=== PATIENT | female | born 1950 | race Caucasian/White ===

== ENCOUNTER 2022-09-07 11:13 | Emergency (ER) | payer MEDICARE, SELFPAY ==
[2022-09-07 11:26] VITALS: BP 153/95; PULSE 85; RESP 16; TEMP 36.6; O2SAT 98
[2022-09-07 11:35] VITALS: BP 153/95; PULSE 85; RESP 16; TEMP 36.6; O2SAT 98
--- NOTE | 2022-09-07 11:44 | ED.URI ---
HPI - URI/Sore Throat General Chief Complaint: Upper Respiratory Infection Stated Complaint: cough, sore throat Time Seen by Provider: 09/07/22 11:30 Source: patient Mode of arrival: ambulatory Limitations: no limitations History of Present Illness HPI Narrative: Simona is a 71-year-old female patient presenting to the clinic today with complaints of cough, sinus congestion, sinus pressure, yellow nasal drainage, and sore throat x9 days. She denies any known fever but has had some chills. MD elicited complaint: cough, sore throat, rhinorrhea, nasal congestion and sinus pain Related Data Home Medications Medication Instructions Recorded Confirmed alprazolam 0.25 mg tablet 0.25 mg PO DIRECTED 09/07/22 09/07/22 buspirone 10 mg tablet 10 mg PO DIRECTED 09/07/22 09/07/22 buspirone 5 mg tablet 5 mg PO DIRECTED 09/07/22 09/07/22 clonidine HCl 0.1 mg tablet 0.1 mg PO DIRECTED 09/07/22 09/07/22 hydrochlorothiazide 12.5 mg capsule 12.5 mg PO DAILY 09/07/22 09/07/22 hydrochlorothiazide 25 mg tablet 25 mg PO DAILY 09/07/22 09/07/22 metoprolol succinate 50 mg 50 mg PO DAILY 09/07/22 09/07/22 tablet,extended release 24 hr potassium chloride 10 mEq 1 meq PO DAILY 09/07/22 09/07/22 tablet,extended release(part/cryst) (Klor-Con M) rosuvastatin 20 mg tablet 20 mg PO DAILY 09/07/22 09/07/22 sacubitril 49 mg-valsartan 51 mg 1 tablet PO DAILY 09/07/22 09/07/22 tablet (Entresto) Allergies Allergy/AdvReac Type Severity Reaction Status Date / Time Penicillins Allergy Rash Verified 09/07/22 11:57 Review of Systems Review of Systems: Pertinent positives per HPI. Patient denies any fever, rash, visual changes, dizziness, cough, shortness of breath, chest pain, palpitations, nausea, vomiting, diarrhea, constipation, abdominal pain, or any urinary issues. PMFSH Comments At the time of my signature, I reviewed and agree with the nursing past medical, surgical, social, and family history. There is no relevant family history pertinent to the patient complaint. Exam Narrative: General: Well-developed, obese, in no apparent distress Head: Normocephalic, atraumatic Eyes: Pupils equally round and reactive to light bilaterally, EOM intact, sclera and conjunctive clear, no discharge, lids normal Ears: TMs intact and clear, ear canals clear, no drainage, grossly hearing normal. Nose: Nares patent, yellow nasal discharge, moderate to severe inflammation, maxillary and frontal sinus tenderness. Mouth: Oral pharynx without lesions or masses, good dentition, MMM. Postnasal drip Neck: Supple, trachea midline, no enlargement of anterior or posterior cervical nodes, no thyroid masses or goiter palpable. Cardio: Regular rate and rhythm, s1 and s2 normal, no murmur appreciated. Resp: Clear to auscultation bilaterally, no rhonchi, rales, wheezing or rubs Course Course Emergency Course: Portions of this record may have been created with voice recognition software. Level of Care: Express Care Visit Vital Signs Vital signs: Vital Signs Temperature 36.6 C 09/07/22 11:26 Pulse Rate 85 09/07/22 11:26 Respiratory Rate 16 09/07/22 11:26 Blood Pressure 153/95 H 09/07/22 11:26 Pulse Oximetry 98 09/07/22 11:26 Oxygen Delivery Room Air 09/07/22 11:26 Temperature 36.6 C 09/07/22 11:35 Pulse Rate 85 09/07/22 11:35 Respiratory Rate 16 09/07/22 11:35 Blood Pressure 153/95 H 09/07/22 11:35 Pulse Oximetry 98 09/07/22 11:35 Oxygen Delivery Room Air 09/07/22 11:35 Vital signs reviewed MDM - URI/Sore Throat MDM Narrative Medical decision making narrative: At the time of visit patient is resting comfortably on the exam table. I suspect patient has acute bacterial rhinosinusitis. Prescription for doxycycline and prednisone was sent to the pharmacy and supportive measures were discussed with the patient she voiced understanding of discharge instructions and agrees to the treatment plan. Differential D
== END 2022-09-07 11:49 | disposition home or self-care (01) ==
PROVIDERS: Emergency Provider Nurse Practitioner Family
DX: J01.90 Acute sinusitis, unspecified (principal); E78.00 Pure hypercholesterolemia, unspecified; I10 Essential (primary) hypertension; M19.90 Unspecified osteoarthritis, unspecified site
CPT/HCPCS: 99213; G0463

== ENCOUNTER 2022-10-28 18:36 | Emergency (ER) | payer MEDICARE, SELFPAY ==
--- NOTE | ~2022-10-28 | XR_ITS ---
EXAMINATION: XR wrist RT min 3V INDICATION: Right wrist pain TECHNIQUE: Four views of the right wrist are obtained. 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 There appears to be an old healed fracture of th e ulnar styloid. There is mild irregularity in the distal aspect of the first proximal phalanx. The soft tissues are unremarkable. IMPRESSION: 1. Mild irregularity in the distal aspect of the first proximal phalanx which could reflect osteoarth ritis versus old injury. Correlate for tenderness at this site. Reviewed, dictated and finalized at location F. IMPRESSION: 1. Mild irregularity in the distal aspect of the first proximal phalanx which c ould reflect osteoarthritis versus old injury. Correlate for tenderness at this site.
[2022-10-28 18:42] VITALS: BP 151/80; PULSE 91; RESP 16; TEMP 36.4; O2SAT 98
--- NOTE | 2022-10-28 18:44 | ED.UPPEXIN ---
HPI - Extremity Injury (Upper) General Chief Complaint: Extremity Injury, Upper Stated Complaint: FALL/INJURED R HAND/WRIST Time Seen by Provider: 10/28/22 18:44 Source: patient and RN notes reviewed History of Present Illness HPI narrative: Patient is a 71-year-old female who presents to urgent care with complaints of right hand/wrist pain after falling on the gravel today. Patient states that she rolled her right ankle and fell down onto her left knee catching herself with her right hand. Patient states that the knee feels okay however she is concerned about a right hand fracture. Patient has clean the wound and put ice on the hand. No other acute complaints or injuries. Denies hitting her head or any loss consciousness. No other acute complaints. Patient aware of the plan of care. Some parts of this dictation were generated by voice recognition software and may contain typographical and/or grammatical inaccuracies. Related Data Home Medications Medication Instructions Recorded Confirmed alprazolam 0.25 mg tablet 0.25 mg PO DIRECTED 09/07/22 09/07/22 buspirone 10 mg tablet 10 mg PO DIRECTED 09/07/22 09/07/22 buspirone 5 mg tablet 5 mg PO DIRECTED 09/07/22 09/07/22 clonidine HCl 0.1 mg tablet 0.1 mg PO DIRECTED 09/07/22 09/07/22 hydrochlorothiazide 12.5 mg capsule 12.5 mg PO DAILY 09/07/22 09/07/22 hydrochlorothiazide 25 mg tablet 25 mg PO DAILY 09/07/22 09/07/22 metoprolol succinate 50 mg 50 mg PO DAILY 09/07/22 09/07/22 tablet,extended release 24 hr potassium chloride 10 mEq 1 meq PO DAILY 09/07/22 09/07/22 tablet,extended release(part/cryst) (Klor-Con M) rosuvastatin 20 mg tablet 20 mg PO DAILY 09/07/22 09/07/22 sacubitril 49 mg-valsartan 51 mg 1 tablet PO DAILY 09/07/22 09/07/22 tablet (Entresto) Allergies Allergy/AdvReac Type Severity Reaction Status Date / Time Penicillins Allergy Rash Verified 10/28/22 18:45 Review of Systems Review of Systems: CONSTITUTIONAL: Denies fever, chills, or sweats. EYES: Denies visual changes, redness, or discharge. ENT: Denies rhinorrhea, congestion, sore throat, or otalgia. CARDIOVASCULAR: Denies chest pain, palpitations, or edema. RESPIRATORY: Denies cough or dyspnea. GASTROINTESTINAL: Denies abdominal pain, nausea, vomiting, or diarrhea. GENITOURINARY: Denies dysuria or hematuria. SKIN: Denies rash or itching. MUSCULOSKELETAL: Reports right hand/wrist pain after fall NEUROLOGIC: Denies headache, numbness, or weakness. All other systems reviewed are negative, except as documented in HPI. PMFSH Comments At the time of my signature, I reviewed and agree with the nursing past medical, surgical, social, and family history. There is no relevant family history pertinent to the patient complaint. Exam Narrative: GENERAL: This is a well-nourished, well-developed patient, in no apparent distress. HEAD: normocephalic, atraumatic. EYES: PERRL. Sclera clear/white. Vision is grossly intact. EARS: External ears normal NOSE: External nose normal with no obvious nasal discharge, nares without redness, no rhinorrhea. THROAT: Mucous membranes moist NECK: Neck supple SKIN: Superficial skin abrasions to the anterior aspect of the left knee. Superficial skin abrasions to the thenar eminence of the right palmar hand. NEURO: awake, alert, and oriented to person, place and time. There were no obvious focal neurologic abnormalities. EXTREMITIES: Mild ecchymosis to the distal and of the right 1st phalanx with mild tenderness. No obvious deformity noted to right upper extremity. Positive strong right radial pulse with capillary refill less than 2 seconds. Range of motion to right hand within normal limits. Course Course Level of Care: Express Care Visit Vital Signs Vital signs: Vital Signs Temperature 97.6 F 10/28/22 18:42 Pulse Rate 91 10/28/22 18:42 Respiratory Rate 16 10/28/22 18:42 Blood Pressure 151/80 H 10/28/22 18:42 Pulse Oximetry 98 10/28/22 1
[2022-10-28 18:47] VITALS: BP 151/80; PULSE 91; RESP 16; TEMP 36.4; O2SAT 98
== END 2022-10-28 19:39 | disposition home or self-care (01) ==
PROVIDERS: Emergency Provider Nurse Practitioner Family; PCP Internal Medicine
DX: S63.501A Unspecified sprain of right wrist, initial encounter (principal); S66.911A Strain of unspecified muscle, fascia and tendon at wrist and hand level, right hand, initial encounter; W19.XXXA Unspecified fall, initial encounter; S63.601A Unspecified sprain of right thumb, initial encounter; E78.00 Pure hypercholesterolemia, unspecified; I10 Essential (primary) hypertension; M19.90 Unspecified osteoarthritis, unspecified site
CPT/HCPCS: 73110; 99213; G0463

== ENCOUNTER 2023-06-05 10:05 | Emergency (ER) | payer MEDICARE, SELFPAY ==
--- NOTE | 2023-06-05 10:10 | ED.LOWEXIN ---
HPI - Extremity Injury (Lower) General Chief Complaint: Extremity Injury, Lower Stated Complaint: R KNEE PAIN Source: patient, family and RN notes reviewed History of Present Illness HPI Narrative: 72 yo F presents to urgent care with daughter at side. Pt states she has been having right medial knee pain x 2 days. Pt states 2 days prior to when the pain started, she rode her bike which has not been a daily activity for her. Denies any known injury or falls. Denies any fevers, chills, chest pain, SOB, numbness, or tingling. Pt has been taking Tylenol with moderate relief. Pt states last time she had pain like this, she was given a Toradol injection which took the pain right away. Pt states the Toradol injection made her stomach upset and states steroids have also helped her with pain like this in the past. Related Data Home Medications Medication Instructions Recorded Confirmed alprazolam 0.25 mg tablet 0.25 mg PO DIRECTED 09/07/22 06/05/23 buspirone 10 mg tablet 10 mg PO DIRECTED 09/07/22 06/05/23 buspirone 5 mg tablet 5 mg PO DIRECTED 09/07/22 06/05/23 clonidine HCl 0.1 mg tablet 0.1 mg PO DIRECTED 09/07/22 06/05/23 hydrochlorothiazide 12.5 mg capsule 12.5 mg PO DAILY 09/07/22 06/05/23 hydrochlorothiazide 25 mg tablet 25 mg PO DAILY 09/07/22 06/05/23 metoprolol succinate 50 mg 50 mg PO DAILY 09/07/22 06/05/23 tablet,extended release 24 hr rosuvastatin 20 mg tablet 20 mg PO DAILY 09/07/22 06/05/23 sacubitril 49 mg-valsartan 51 mg 1 tablet PO DAILY 09/07/22 06/05/23 tablet (Entresto) aspirin 81 mg capsule 81 mg PO DAILY 11/09/22 06/05/23 bupropion HCl 100 mg tablet,12 hr 100 mg PO DAILY 11/09/22 06/05/23 sustained-release (Wellbutrin SR) cetirizine 10 mg capsule (Zyrtec) 10 mg PO DAILY PRN Allergic 11/09/22 06/05/23 Symptoms Allergies Allergy/AdvReac Type Severity Reaction Status Date / Time morphine Allergy Severe Vomiting Verified 06/05/23 10:10 Penicillins Allergy Rash Verified 06/05/23 10:10 hydrocodone AdvReac Intermediate Nausea and Verified 06/05/23 10:10 Vomiting Review of Systems Review of Systems: CONSTITUTIONAL: Denies fever, chills, or sweats. EYES: Denies visual changes, redness, or discharge. ENT: Denies otalgia and sore throat CARDIOVASCULAR: Denies chest pain, palpitations, or edema. RESPIRATORY: Denies cough or dyspnea. GASTROINTESTINAL: Denies abdominal pain, nausea, vomiting, or diarrhea. GENITOURINARY: Denies dysuria or hematuria. SKIN: Denies rash or itching. MUSCULOSKELETAL: right knee pain NEUROLOGIC: Denies headache, numbness, or weakness. Pertinent positives per HPI. PMFSH Past Medical History Medical History Anxiety History of ectopic Hyperlipidemia Hypertension Surgical History Surgical History History of hysterectomy Family History Family History Father Cancer Diabetes mellitus Hypertension Depression Heart disease Other Cancer Diabetes mellitus Hypertension Heart disease Thyroid disorder Grandparent Cancer Diabetes mellitus Hypertension Cerebrovascular accident Thyroid disorder Mother Hypertension Heart disease Cerebrovascular accident Thyroid disorder Sibling Hypertension Social History Social History Smoking status: Never smoker Alcohol intake: never Substance use type: does not use Living arrangements: with family Occupation/Education: retired Comments At the time of my signature, I reviewed and agree with the nursing past medical, surgical, social, and family history. There is no relevant family history pertinent to the patient complaint. Exam Narrative: GENERAL: This is a well-nourished, well-developed patient, in no apparent distress. HEAD: normocephalic, a
[2023-06-05 10:18] VITALS: BP 125/90; PULSE 70; RESP 16; TEMP 36.8; O2SAT 99
[2023-06-05] MEDS: predniSONE 20 MG TABLET 30 MG PO (10:50)
== END 2023-06-05 12:28 | disposition home or self-care (01) ==
PROVIDERS: Emergency Provider Nurse Practitioner Family; PCP Family Medicine
DX: M25.561 Pain in right knee (principal); E78.5 Hyperlipidemia, unspecified; I10 Essential (primary) hypertension; Z79.899 Other long term (current) drug therapy; Z79.82 Long term (current) use of aspirin
CPT/HCPCS: 99213; G0463; J7512

== ENCOUNTER 2024-02-11 13:15 | Outpatient (RCR) | payer MEDICARE, SELFPAY ==
--- NOTE | 2023-11-16 16:00 | OPREHPOC ---
Outpatient Therapy Plan of Care This is a Multidisciplinary Plan of Care that may contain components documented by all disciplines (PT, OT, and ST.) PT Problem 1 PT Problem #1 Knowledge Deficit PT Goal 1 Goal Pt to be IND with issued HEP Target Visit 8 PT Problem 2 PT Problem #2 Pain PT Goal 1 Goal Pt to report knee pain no greater than 3/10 in the last week. Target Visit 8 PT Goal 2 Goal Pt to report 75% improvement in overall symptoms. Target Visit 8 PT Problem 3 PT Problem #3 Impaired Functional Mobil PT Goal 1 Goal Pt to demonstrate a functional lift and carry of 20lb without an increase in symptoms. Target Visit 8 PT Goal 2 Goal Pt to demonstrate a floor to stand transfers with external support. Target Visit 8 PT Problem 4 PT Problem #4 Impaired Strength PT Goal 1 Goal Pt to improve 5xSTS time from 56s to 30s without UE support. Target Visit 8 PT Goal 2 Goal Pt to improve lateral hip strength to 3/5. Target Visit 8
--- NOTE | 2023-11-16 16:00 | PTOPEVAL1 ---
Assessment and note entered by Stephen Duvall, PT, DPT Evaluation Information Assessment Status Evaluation Diagnosis R knee pain Onset 6 months Subjective Information Pt reports in the last 6 months she has gotten multiple episodes of severe pain to where she cannot walk. She states the only things that helps with the pain is getting an injection. She gets these episodes about every 3 months. 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 Prolonged standing increases her knee pain. Reported Pain Level Pain Score 0: Self Report Assessment PT Clinical Summary Simona presents to therapy today for her initial evaluation with a diagnosis of R knee pain. Today she demonstrates decreased strength throughout her hips and knees humphrey. She ambulates with increased hip drop with a lateral trunk lean and a non- reciprocal pattern on the stairs. She reports decreased standing tolerance and decreased functional mobility. Skilled therapy services are indicated to progress strength, manage pain, and to improve functional mobility. Plan of Care Interventions Electrical Stimulation,Gait Training,Hot Pack/Cold Pack,Manual Therapy,Neuro Re-education,Patient/ Caregiver Educati,Therapeutic Activities, Therapeutic Exercise PT Services Indicated Yes Treatment Frequency and 2x/wk for 8 visits Duration These treatments will address the objective and functional deficits as defined above. The patient will be advanced safely and appropriately in order for the patient to progress towards his/her prior level of function. Additional exercises will be introduced and as well as a comprehensive home exercise program upon discharge, if needed, ?to ensure carryover of functional gains achieved in the clinic. This treatment plan has been reviewed and agreement upon by the patient.
--- NOTE | 2023-12-21 11:14 | OPREHPOC ---
Outpatient Therapy Plan of Care This is a Multidisciplinary Plan of Care that may contain components documented by all disciplines (PT, OT, and ST.) PT Problem 1 PT Problem #1 Knowledge Deficit PT Goal 1 Goal Pt to be IND with issued HEP Target Visit 8 Progress Met PT Problem 2 PT Problem #2 Pain PT Goal 1 Goal Pt to report knee pain no greater than 3/10 in the last week. Target Visit 16 Progress Partially Met PT Goal 2 Goal Pt to report 75% improvement in overall symptoms. Target Visit 16 Progress Partially Met PT Problem 3 PT Problem #3 Impaired Functional Mobil PT Goal 1 Goal Pt to demonstrate a functional lift and carry of 20lb without an increase in symptoms. Target Visit 16 Progress Partially Met PT Goal 2 Goal Pt to demonstrate a floor to stand transfers with external support. Target Visit 16 Progress Partially Met PT Problem 4 PT Problem #4 Impaired Strength PT Goal 1 Goal Pt to improve 5xSTS time from 56s to 30s without UE support. Target Visit 8 Comment Not assessed this date due to clinician error. Will be assessed next progress in addition to current goals PT Goal 2 Goal Pt to improve lateral hip strength to 3/5. Target Visit 16 Progress Partially Met
--- NOTE | 2023-12-21 11:14 | PTOPPROG ---
Assessment and note entered by Baldemar Nam, PT Evaluation Information Assessment Status Progress Diagnosis R knee pain Onset 6 months Subjective Information Reports that functionally she has seen improvement in her capability and feels she does not have to put as much effort into doing things. She has been more active around the house. She is still dealing with pain and some limitation in walking. She has to do tasks in segments. Most of her walking involves walking around the house. 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 She has a lot of difficulty with NSAIDs due to gastrointestinal issues. She denies any fall or inability to get out of chairs since initiating therapy. Assessment PT Clinical Summary Patient continues to show signs and symptoms of knee weakness and poor functional mobility. 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 Will continue to benefit from skilled therapy to address deficits. Plan of Care Interventions Electrical Stimulation,Gait Training,Hot Pack/Cold Pack,Manual Therapy,Neuro Re-education,Patient/ Caregiver Educati,Therapeutic Activities, Therapeutic Exercise PT Services Indicated Yes Treatment Frequency and 2x/week for 8 visits Duration These treatments will address the objective and functional deficits as defined above. The patient will be advanced safely and appropriately in order for the patient to progress towards his/her prior level of function. Additional exercises will be introduced and as well as a comprehensive home exercise program upon discharge, if needed, ?to ensure carryover of functional gains achieved in the clinic. This treatment plan has been reviewed and agreement upon by the patient.
--- NOTE | 2023-12-28 09:13 | PCPTNOTE ---
Patient called to cancel this date due to water leak at home.
--- NOTE | 2024-01-21 15:25 | PTOPPROG ---
Assessment and note entered by Baldemar Nam, PT Evaluation Information Assessment Status Discharge Diagnosis R knee pain Onset 6 months Subjective Information Reports that overall she feels that her knee is getting a lot better. She continues to have difficulty with her balance and would like to continue to work on that. She has been able to help her navigate a lot better lately. Continues to have some medial knee pain that is affected by increased activity. Assessment PT Clinical Summary Patient showing great objective progress at this time. Overall continues to have some balance deficits which will continue to be addressed through strengthening, proprioception, and balance training. No concerns at this time with progressing to tolerance. Plan of Care Interventions Electrical Stimulation,Gait Training,Hot Pack/Cold Pack,Manual Therapy,Neuro Re-education,Patient/ Caregiver Educati,Therapeutic Activities, Therapeutic Exercise PT Services Indicated Yes Treatment Frequency and 2x/week for 8 visits Duration These treatments will address the objective and functional deficits as defined above. The patient will be advanced safely and appropriately in order for the patient to progress towards his/her prior level of function. Additional exercises will be introduced and as well as a comprehensive home exercise program upon discharge, if needed, ?to ensure carryover of functional gains achieved in the clinic. This treatment plan has been reviewed and agreement upon by the patient.
--- NOTE | 2024-01-21 15:25 | OPREHPOC ---
Outpatient Therapy Plan of Care This is a Multidisciplinary Plan of Care that may contain components documented by all disciplines (PT, OT, and ST.) PT Problem 1 PT Problem #1 Knowledge Deficit PT Goal 1 Goal Pt to be IND with issued HEP Target Visit 8 Progress Met PT Problem 2 PT Problem #2 Pain PT Goal 1 Goal Pt to report knee pain no greater than 3/10 in the last week. Target Visit 16 Progress Met PT Goal 2 Goal Pt to report 75% improvement in overall symptoms. Target Visit 16 Progress Partially Met PT Problem 3 PT Problem #3 Impaired Functional Mobil PT Goal 1 Goal Pt to demonstrate a functional lift and carry of 20lb without an increase in symptoms. Target Visit 16 Progress Partially Met PT Goal 2 Goal Pt to demonstrate a floor to stand transfers with external support. Target Visit 16 Progress Partially Met PT Problem 4 PT Problem #4 Impaired Strength PT Goal 1 Goal Pt to improve 5xSTS time from 56s to 30s without UE support. Target Visit 8 Progress Met PT Goal 2 Goal Pt to improve lateral hip strength to 3/5. Target Visit 16 Progress Met PT Goal 1 Goal Patient will demonstrate ability to maintain stance on uneven surface for 30 seconds with no LOB or increased knee pain Target Visit 20
== END 2024-02-14 08:30 | disposition still patient (30) ==
LOC: ANHGOSHPT 13:15
PROVIDERS: PCP Family Medicine; Visit Provider Physician Assistant
DX: M17.11 Unilateral primary osteoarthritis, right knee (principal)
CPT/HCPCS: 97110; 97112; 97116; 97161; 97530

== ENCOUNTER 2024-03-10 14:15 | Outpatient (RCR) | payer MEDICARE, SELFPAY ==
--- NOTE | 2024-03-10 16:52 | PTOPDC ---
Assessment and note entered by Baldemar Nam, PT Evaluation Information Assessment Status Discharge Diagnosis R knee pain Onset August 2023 Subjective Information Patient reports that she has a cortisone injection scheduled for the end of the month. Up til now they have been helping but she has seen an influx in her A1C. She plans to continue with HEP and aquatic therapy. Reported Pain Level Pain Score Mild Pain: Garza Qian Assessment PT Clinical Summary Patient has met goals for therapy and is suitable for discharge at this time to [facility]. Patient continues to have some pain limitation but objectively is doing well. We discussed her current plan to receive cortisone injection and importance of monitoring A1C and discussing with MD. Patient was negative for BPPV at this time ruling out effect on balance issues. Plan of Care PT Services Indicated D/C to HEP
== END 2024-03-13 09:43 | disposition home or self-care (01) ==
LOC: ANHGOSHPT 14:15
PROVIDERS: PCP Family Medicine; Visit Provider Physician Assistant
DX: M17.11 Unilateral primary osteoarthritis, right knee (principal)
CPT/HCPCS: 97110; 97530

== ENCOUNTER 2025-02-04 14:02 | Emergency (ER) | payer MEDICARE, SELFPAY ==
--- NOTE | ~2025-02-04 | XR_ITS ---
EXAMINATION: XR ribs LT 2V Exam Date/Time: 02/04/2025 14:32 CDT HISTORY: pain left posterior ribs Comparison: None available. RESULT: Lines, tubes, and devices: None. Lungs and pleura: The right lung is incompletely visualized. Streaky opacities in the left lung base . Minimal left costophrenic angle blunting. Cardiothymic silhouette: Stable. Other: No acute osseous or upper abdominal finding. Sclerotic lesion in the proximal left humerus, l ikely enchondroma or large bone island. IMPRESSION: Streaky left basilar opacities likely representing atelectasis/scar. Possible trace left pleural effu pearl. No acute osseous finding detected in the left ribs. Reviewed, dictated and finalized at location K. IMPRESSION: Streaky left basilar opacities likely representing atelectasis/scar. Possible t race left pleural effusion. No acute osseous finding detected in the left ribs.
--- NOTE | ~2025-02-04 | XR_ITS ---
EXAM: XR thoracic spine 3V DATE: 02/04/2025 14:40 HISTORY: mid back pain after fall backwards . COMPARISON: None available. FINDINGS: Vertebral body alignment intact. Vertebral body heights preserved. Multilevel moderate deg enerative disc disease. No traumatic malalignment or fracture. Visualized lung parenchyma is clear. IMPRESSION: No acute osseous fracture or traumatic malalignment detected in the thoracic spine. If pa in persists or clinical suspicion of injury is high, consider CT of the thoracic spine for further ev aluation. Reviewed, dictated and finalized at location K. IMPRESSION: No acute osseous fracture or traumatic malalignment detected in the thoracic spine. If pain persists or clinical suspicion of injury is high, cons ider CT of the thoracic spine for further evaluation.
--- NOTE | 2025-02-04 14:14 | ED.GENADULT ---
HPI - General Adult General Chief complaint: Back Pain/Injury Stated complaint: Back Pain/Head Pain Time Seen by Provider: 02/04/25 14:14 Source: patient Mode of arrival: ambulatory Limitations: no limitations History of Present Illness HPI narrative: 74 y/o female presented for c/o pain to the mid upper back, left ribs, and scalp following a fall last night. Patient was in a rocking lounge chair when she leaned back to look up at the fireworks, and she fell backwards onto the ground. She states she struck her head on concrete; says the knot is now improved. Pt struck the thoracic spine area on a gravel patch. Endorses a small bruised area to the back of the left ribs. Reports decreased ROM to left arm due to the back and rib pain. She denies shortness of breath, wheezing, hemoptysis, dizziness, nausea, vision changes or lethargy. Denies LOC. Took Tylenol at 10:30 a.m. today. Related Data Home Medications ?Medication ?Instructions ?Recorded ?Confirmed ?Last Taken ?Type alprazolam 0.25 mg tablet 0.25 mg PO DIRECTED 09/07/22 06/05/23 Unknown History buspirone 10 mg tablet 10 mg PO DIRECTED 09/07/22 06/05/23 Unknown History buspirone 5 mg tablet 5 mg PO DIRECTED 09/07/22 06/05/23 Unknown History clonidine HCl 0.1 mg tablet 0.1 mg PO DIRECTED 09/07/22 06/05/23 Unknown History hydrochlorothiazide 12.5 mg capsule 12.5 mg PO DAILY 09/07/22 06/05/23 Unknown History hydrochlorothiazide 25 mg tablet 25 mg PO DAILY 09/07/22 06/05/23 Unknown History metoprolol succinate 50 mg 50 mg PO DAILY 09/07/22 06/05/23 Unknown History tablet,extended release 24 hr rosuvastatin 20 mg tablet 20 mg PO DAILY 09/07/22 06/05/23 Unknown History sacubitril 49 mg-valsartan 51 mg 1 tablet PO DAILY 09/07/22 06/05/23 Unknown History tablet (Entresto) aspirin 81 mg capsule 81 mg PO DAILY 11/09/22 06/05/23 Unknown History bupropion HCl 100 mg tablet,12 hr 100 mg PO DAILY 11/09/22 06/05/23 Unknown History sustained-release (Wellbutrin SR) cetirizine 10 mg capsule (Zyrtec) 10 mg PO DAILY PRN Allergic 11/09/22 06/05/23 Unknown History Symptoms Allergies Allergy/AdvReac Type Severity Reaction Status Date / Time morphine Allergy Severe Vomiting Verified 02/04/25 14:27 Penicillins Allergy Rash Verified 02/04/25 14:27 hydrocodone AdvReac Intermediate Nausea and Verified 02/04/25 14:27 Vomiting prochlorperazine (From AdvReac heart Verified 02/04/25 14:27 Compazine) racing Review of Systems Review of Systems: CONSTITUTIONAL: Denies body aches, fever, chills, or sweats. EYES: Denies visual changes, redness, or discharge. ENT: Denies rhinorrhea, congestion, sore throat, or otalgia. CARDIOVASCULAR: Denies chest pain, palpitations, or edema. RESPIRATORY: Denies cough or dyspnea. GASTROINTESTINAL: Denies abdominal pain, nausea, vomiting, or diarrhea. GENITOURINARY: Denies dysuria or hematuria. SKIN: Denies wounds. MUSCULOSKELETAL: Reports left rib pain, thoracic pain NEUROLOGIC: Denies headache, numbness, tingling, or weakness. PSYCH: Denies depression or anxiety. All systems reviewed & are unremarkable except as noted in HPI and below PMFSH Past Medical History Medical History Anxiety History of ectopic Hyperlipidemia Hypertension Surgical History Surgical History History of hysterectomy Family History Family History Father Cancer Diabetes mellitus Hypertension Depression Heart disease Other Cancer Diabetes mellitus Hypertension Heart disease Thyroid disorder Grandparent Cancer Diabetes mellitus Hypertension Cerebrovascular accident Thyroid disorder Mother Hypertension Heart disease Cerebrovascular accident Thyroid disorder Sibling Hypertension Social History Social History Smoking status: Never smoker Alcohol intake: never Substance use type: does not use Living arrangements: with family Occupation/Education: retired Comments At time of signature, I have reviewed and agree with nursing past medical, surgical, social and family history unless otherwise noted. Please see nursing chart for further information. There is no relevant family history pertinent to the presenting complaint Exam Narrative: GENERAL: Well-appearing HEAD: Normocephalic, atraumatic. No apparent hematoma or laceration to the head. EYES: EOMI. No redness or drainage. Conjunctivae normal. ENT: Mucous membranes pink and moist. NECK: Normal AROM. no cervical VPT. Supple. CHEST: No respiratory distress. Clear to auscultation. HEART: Regular rate and rhythm. ABDOMEN: Soft, nontender, nondistended, normal active bowel sounds. MUSCULOSKELETAL: Vertebral tenderness at T4, T6 areas with light palpation; Left posterior rib with small bruised area, tender to palpation at #8. EXTREMITIES: decreased range of motion to LUE due to back pain. No edema. SKIN: Warm, dry, no rash. Capillary refill normal. Normal skin turgor. NEURO: No focal deficits. Alert and oriented x3. Gait steady. PSYCH: Normal affect. Course Course Emergency Course: Patient is aware of diagnosis, understands and agrees to treatment plan. Anticipatory guidance given. Patient agrees to follow-up as directed and is aware of reasons to seek care at the emergency department. Portions of this record may have been created with voice recognition software Level of Care: Express Care Visit Vital Signs Vital signs: Vital Signs Temperature 97.6 F 02/04/25 14:16 Pulse Rate 73 02/04/25 14:16 Respiratory Rate 02/04/25 14:16 Blood Pressure 147/78 H 02/04/25 14:16 Pulse Oximetry 98 02/04/25 14:16 Oxygen Delivery Room Air 02/04/25 14:16 Temperature 97.6 F 02/04/25 14:16 Pulse Rate 73 02/04/25 14:16 Respiratory Rate 20 02/04/25 14:16 Blood Pressure 147/78 H 02/04/25 14:16 Pulse Oximetry 98 02/04/25 14:16 Oxygen Delivery Room Air 02/04/25 14:16 Transfer Transfered to: [facility] Transportation: Other ( Private vehicle) Transfer rationale: Pt is agreeable to transfer. Requests transfer to [facility] via private vehicle/ ambulance. Risks of transportation reviewed with pt including injury, worsening of condition and . v/u. DTR will be driving pt; Report called to hospital, spoke with Dr Rosa accepting physician. Pt is in stable condition at time of transfer. Advised to remain NPO and go directly to the hospital. Medical Decision Making MDM Narrative Medical decision making narrative: Discussed physical exam findings and xrays; pt reporting significant vertebral tenderness with light palpation. Advised ER for CT imaging. Pt was initially resistant, RX tramadol sent and pt was to sign AMA, however pt ultimately decided to go to the ER. Rx canceled. Pt requested [facility]. Differential Diagnosis Differential Diagnosis: rib contusion, rib fracture, thoracic fracture, disc herniation, contusion, radiculopathy Vital Signs Vital Signs: Vital Signs Temperature 97.6 F 02/04/25 14:16 Pulse Rate 73 02/04/25 14:16 Respiratory Rate 20 02/04/25 14:16 Blood Pressure 147/78 H 02/04/25 14:16 Pulse Oximetry 98 02/04/25 14:16 Oxygen Delivery Room Air 02/04/25 14:16 Temperature 97.6 F 02/04/25 14:16 Pulse Rate 73 02/04/25 14:16 Respiratory Rate 20 02/04/25 14:16 Blood Pressure 147/78 H 02/04/25 14:16 Pulse Oximetry 98 02/04/25 14:16 Oxygen Delivery Room Air 02/04/25 14:16 reviewed Imaging Data Radiologist's impression: Patient: Simona Chew : 1950 MR#: [id number] Age: 74 Acct:[id number] Loc: [facility] ADM Date: 02/04/25Attending Dr: EXAM: XR thoracic spine 3V DATE: 02/04/2025 14:40 HISTORY: mid back pain after fall backwards . COMPARISON: None available. FINDINGS: Vertebral body alignment intact. Vertebral body heights preserved. Multilevel moderate degenerative disc disease. No traumatic malalignment or fracture. Visualized lung parenchyma is clear. IMPRESSION: No acute osseous fracture or traumatic malalignment detected in the thoracic spine. If pain persists or clinical suspicion of injury is high, consider CT of the thoracic spine for further evaluation. ---- Patient: Simona Chew : 1950 MR#: [id number] Age: 74 Acct:[id number] Loc: [facility] ADM Date: 02/04/25Attending Dr: EXAMINATION: XR ribs LT 2V Exam Date/Time: 02/04/2025 14:32 CDT HISTORY: pain left posterior ribs Comparison: None available. RESULT: Lines, tubes, and devices: None. Lungs and pleura: The right lung is incompletely visualized. Streaky opacities in the left lung base. Minimal left costophrenic angle blunting. Cardiothymic silhouette: Stable. Other: No acute osseous or upper abdominal finding. Sclerotic lesion in the proximal left humerus, likely enchondroma or large bone island. IMPRESSION: Streaky left basilar opacities likely representing atelectasis/scar. Possible trace left pleural effusion. No acute osseous finding detected in the left ribs. Discharge Plan Discharge Clinical Impression: Acute midline thoracic back pain Contusion of rib Qualifiers: Encounter type: initial encounter Qualified Code(s): S29.8XXA - Other specified injuries of thorax, initial encounter Contusion of scalp Qualifiers: Encounter type: initial encounter Qualified Code(s): S00.03XA - Contusion of scalp, initial encounter Patient Disposition: Acute Care Hospital Condition: Stable Patient Language: Sinhala Prescriptions: No Action buspirone 5 mg tablet 5 mg PO DIRECTED clonidine HCl 0.1 mg tablet 0.1 mg PO DIRECTED metoprolol succinate 50 mg tablet extended release 24 hr 50 mg PO DAILY alprazolam 0.25 mg tablet 0.25 mg PO DIRECTED buspirone 10 mg tablet 10 mg PO DIRECTED hydrochlorothiazide 12.5 mg capsule 12.5 mg PO DAILY hydrochlorothiazide 25 mg tablet 25 mg PO DAILY rosuvastatin 20 mg tablet 20 mg PO DAILY Entresto 49-51 mg tablet 1 tablet PO DAILY bupropion HCl [Wellbutrin SR] 100 mg tablet sustained-release 12 hr 100 mg PO DAILY Zyrtec 10 mg capsule 10 mg PO DAILY PRN (Reason: Allergic Symptoms) aspirin 81 mg capsule 81 mg PO DAILY Follow-up/Referrals: Richard,Bronson Perez MD [Primary Care Provider] - Time of Disposition: 16:17
[2025-02-04 14:16] VITALS: BP 147/78; PULSE 73; RESP 20; TEMP 36.4; O2SAT 98
== END 2025-02-04 15:47 | disposition short-term general hospital (02) ==
PROVIDERS: Emergency Provider Nurse Practitioner Family; PCP Family Medicine
DX: M54.6 Pain in thoracic spine (principal); S20.222A Contusion of left back wall of thorax, initial encounter; S00.03XA Contusion of scalp, initial encounter; W07.XXXA Fall from chair, initial encounter; I10 Essential (primary) hypertension; E78.5 Hyperlipidemia, unspecified; F41.9 Anxiety disorder, unspecified
CPT/HCPCS: 71100; 72072; 99214; G0463